=== PATIENT | male | born 1975 | race Caucasian/White ===

== ENCOUNTER → 2020-11-15 07:55 | Outpatient (CLI) | payer OTHER, SELFPAY ==
--- NOTE | ~2020-11-15 | US_ITS ---
EXAMINATION: US right upper quadrant EXAM DATE: 11/15/2020 08:24 INDICATION: Elevated LFTs TECHNIQUE: Multiple grayscale and Doppler images of the abdomen right upper quadrant were obtained (b y a technologist who performed the scan) and subsequently reviewed. There is no prior study for elvira vogel. FINDINGS: The pancreatic head and body are normal in appearance. The pancreatic tail is not visualized. There is echogenic liver parenchyma with poor penetration, hepatic steatosis and poor acoustic window. Th ere are no focal liver lesions identified. There is no evidence of intrahepatic biliary duct dilati on. Portal venous flow was seen in the hepatopedal, normal direction and has normal Doppler waveform . No right-sided hydronephrosis. Common bile duct measures 4 mm, which is normal. The gallbladder wall is normal in thickness, with ex pected amount of distention. No sonographic evidence of pericholecystic fluid. There is cholelithia sis. Technologist performing exam reports patient did not demonstrate sonographic Mendez's sign. P salvatore note that this sign is less reliable in patients who have received pain medication. IMPRESSION: 1. Hepatic steatosis. 2. Cholelithiasis. Reviewed, dictated and finalized at location D.
== END ==
PROVIDERS: PCP Physician Assistant; Visit Provider Physician Assistant
DX: R79.89 Other specified abnormal findings of blood chemistry (principal); K80.20 Calculus of gallbladder without cholecystitis without obstruction
CPT/HCPCS: 76705